=== PATIENT | female | born 1945 | race Caucasian/White ===

== ENCOUNTER 2018-06-14 11:07 | Day surgery (SDC) | payer MEDICARE, OTHER ==
[~2018-06-14] VITALS: Ht 170.2 cm; Wt 70.1 kg
[~2018-06-14 11:07] MED LIST: Aspirin EC81 MG; BISO5 PO; Stool Softener100 MG PO
--- NOTE | 2018-06-14 15:36 | NUR ---
06/14/18 1536 Alannah Hill LATE ENTRY FOR TODAY AT 1500 PATIENT UPDATED REGARDING DELAY. NO COMPLAINTS AT THIS TIME, CALL LIGHT WITHIN REACH. WILL CONTINUE TO UPDATE NEEDED.
== END 2018-06-14 16:55 | disposition home or self-care (01) ==
LOC: ORSCSDS 11:07
PROVIDERS: Internal Medicine Gastroenterology
PROC: 0DBL8ZX Excision of Transverse Colon, Via Natural or Artificial Opening Endoscopic, Diagnostic (ICD-10-PCS; principal; 2018-06-14 13:30)
PROC: 0DBK8ZX Excision of Ascending Colon, Via Natural or Artificial Opening Endoscopic, Diagnostic (ICD-10-PCS; principal; 2018-06-14 13:30)
DX: Z12.11 Encounter for screening for malignant neoplasm of colon (principal); Z86.010 Personal history of colon polyps; Z80.0 Family history of malignant neoplasm of digestive organs; D12.2 Benign neoplasm of ascending colon; D12.3 Benign neoplasm of transverse colon; K64.8 Other hemorrhoids; I10 Essential (primary) hypertension; Z79.899 Other long term (current) drug therapy
CPT/HCPCS: 88305; J7120

== ENCOUNTER 2019-02-02 09:56 | Day surgery (SDC) | payer MEDICARE, OTHER ==
[~2019-02-02] VITALS: Ht 167.6 cm; Wt 158.0 kg
--- NOTE | 2019-02-02 12:52 | NUR ---
02/02/19 9344 Jasmin Wallace 1242- DR FENTON PRESENTED TO THE YUSRA-OP AREA TO INJECT R WRIST WITH MARCAINE 0.5% WITH EPI 1:200,000 5CC AND LIDOCAINE 2% WITH EPI 1:100,000 5CC. PULSE OXIMETRY WAS MONITORED AND PT REMAINED STABLE. PT TOLERATED WELL. NO COMPLICATIONS.
--- NOTE | 2019-02-02 14:15 | NUR ---
02/02/19 1414 Dulce Peoples WHILE IN STEP DOWN PT COMPLAINED OF NAUSEA. RN TREATED WITH ZOFRAN PER ORDERS. VSS. PT ACCOMPANIED BY HER .RN WENT OVER DISCHARGE INSTRUCTIONS WITH PT AND PT'S FAMILY UNTIL ALL QUESTIONS WERE ANSWERED. PT SENT HOME WITH WRITTEN INSTRUCTIONS, SLING, PERSONAL BELONGINGS, AND RX. PT WALKED OUT VIA STAND BY ASSIST FROM RN TO 'S CAR.
== END 2019-02-02 14:12 | disposition home or self-care (01) ==
LOC: ORSCSDS 09:56
PROVIDERS: Orthopaedic Surgery
PROC: 01N54ZZ Release Median Nerve, Percutaneous Endoscopic Approach (ICD-10-PCS; principal; 2019-02-02 12:55)
DX: G56.01 Carpal tunnel syndrome, right upper limb (principal); I10 Essential (primary) hypertension; Z79.899 Other long term (current) drug therapy
CPT/HCPCS: J0171; J0690; J2250; J2405; J3010; J7120

== ENCOUNTER → 2019-09-22 | Outpatient (CLI) | payer MEDICARE, OTHER ==
[2019-09-22 13:14] LABS: Source, Urine Clean Catch
[2019-09-22 14:33] LABS: Bilirubin, Urine Neg (Neg); Blood, Urine 2+ (Neg); Glucose Qualitative, Urine Neg (Neg); Ketones, Urine 1+ (Neg); Leukocyte Esterase, Urine Neg (Neg); Nitrite, Urine Neg (Neg); Protein, Urine Neg (Neg); Urobilinogen, Urine NORM (Normal)
[2019-09-22 14:44] LABS: Appearance, Urine Clear (Clear); Color, Urine Pale Yellow (P-Yellow)
[2019-09-22 14:45] LABS: Bacteria Rare /hpf; Squamous Epithelial Cells Not Seen /hpf (Few); White Blood Cells, Urine Not Seen /hpf (0-5)
== END | disposition home or self-care (01) ==
LOC: LAB SHORT 12:35 → LAB 12:35
PROVIDERS: Internal Medicine
DX: R30.0 Dysuria (principal)
CPT/HCPCS: 81001

== ENCOUNTER → 2020-07-10 | Outpatient (CLI) | payer MEDICARE, OTHER | END | disposition home or self-care (01) | LOC: LAB SHORT 06:00 → PLD 06:00 | DX: R10.13 Epigastric pain (principal) | CPT/HCPCS: 87338 ==

== ENCOUNTER 2021-07-03 13:35 | Day surgery (SDC) | payer MEDICARE, OTHER ==
--- NOTE | 2021-07-03 15:33 | NUR ---
07/03/21 1533 ZOILA WILSON History, Chart, Medications and Allergies reviewed before start of procedure. Patient confirms NPO status and agrees with scheduled surgery. 3-LEAD EKG REVIEWED WITH PHYSICIAN PRIOR TO START OF PROCEDURE. MONITOR INTACT WITH CONTINUOUS PULSE OXIMETRY AND INTERMITTENT BP. PATIENT DETERMINED TO BE ASA APPROPRIATE FOR PROPOFOL SEDATION PRIOR TO START OF PROCEDURE BY DR. CRUZ. O2 VIA CANNULA.
--- NOTE | 2021-07-03 17:04 | NUR ---
PT AOX4. DENIES PAIN,N/V. PT TOLERATING PO FLUIDS. RIDE INFORMED OF STATUS.
--- NOTE | 2021-07-03 17:36 | NUR ---
Discharge instructions reviewed with patient. Patient verbalizes understanding. Copy given to patient to take home. Patient States Post-Procedure ride home has been arranged. Discharged via wheelchair to private car for ride home.
== END 2021-07-03 17:38 | disposition home or self-care (01) ==
LOC: ORSCMMR 13:35 → ORD 14:45 → ORSCSDS 14:45 → ORSCMMR 17:38
PROVIDERS: Internal Medicine Gastroenterology
PROC: 0DBK8ZX Excision of Ascending Colon, Via Natural or Artificial Opening Endoscopic, Diagnostic (ICD-10-PCS; principal; 2021-07-03 14:45)
PROC: 0DBL8ZX Excision of Transverse Colon, Via Natural or Artificial Opening Endoscopic, Diagnostic (ICD-10-PCS; principal; 2021-07-03 14:45)
DX: Z12.11 Encounter for screening for malignant neoplasm of colon (principal); Z86.010 Personal history of colon polyps; D12.2 Benign neoplasm of ascending colon; D12.3 Benign neoplasm of transverse colon; K64.8 Other hemorrhoids; Z80.0 Family history of malignant neoplasm of digestive organs; Z79.899 Other long term (current) drug therapy
CPT/HCPCS: J2704; J7120

== ENCOUNTER 2022-04-16 07:47 | Day surgery (SDC) | payer MEDICARE, OTHER ==
[~2022-04-16] VITALS: Ht 167.6 cm; Wt 71.6 kg
[2022-04-16] MEDS ORDERED: Ativan1 MG PO (08:15)
[2022-04-16] MEDS ORDERED: DOCU100 PO (08:15)
--- NOTE | 2022-04-16 08:22 | NUR ---
04/16/22 0822 Brenda Abreu AT 0814 PLEDGET AT 0820
== END 2022-04-16 09:30 | disposition home or self-care (01) ==
LOC: ORSCSDS 07:47
PROVIDERS: Ophthalmology
PROC: 08DK3ZZ Extraction of Left Lens, Percutaneous Approach (ICD-10-PCS; principal; 2022-04-16 09:00)
DX: H25.12 Age-related nuclear cataract, left eye (principal); I10 Essential (primary) hypertension; Z79.899 Other long term (current) drug therapy
CPT/HCPCS: J2001; J2250; J3010; J3301; J7040; V2632

== ENCOUNTER 2022-04-30 07:49 | Day surgery (SDC) | payer MEDICARE, OTHER ==
[~2022-04-30] VITALS: Ht 170.2 cm; Wt 70.9 kg
[~2022-04-30 07:49] MED LIST changes: +Ativan1 MG PO; +DOCU100 PO
[2022-04-30] MEDS ORDERED: ZINC220 PO (08:12)
[2022-04-30] MEDS ORDERED: THERA-D2000 UNIT PO (08:12)
--- NOTE | 2022-04-30 08:24 | NUR ---
04/30/22 0824 Brenda Abreu IN AT 0810 HA IN AT 0812
== END 2022-04-30 09:39 | disposition home or self-care (01) ==
LOC: ORSCSDS 07:49
PROVIDERS: Ophthalmology
PROC: 08DJ3ZZ Extraction of Right Lens, Percutaneous Approach (ICD-10-PCS; principal; 2022-04-30 09:00)
DX: H25.11 Age-related nuclear cataract, right eye (principal); Z96.1 Presence of intraocular lens; I10 Essential (primary) hypertension; Z79.899 Other long term (current) drug therapy
CPT/HCPCS: J2001; J2250; J3010; J3300; J3301; J7040; V2632

== ENCOUNTER 2024-07-11 08:13 | Day surgery (SDC) | payer MEDICARE, OTHER ==
[~2024-07-11] VITALS: Ht 167.6 cm; Wt 68.6 kg
[~2024-07-11 08:13] MED LIST changes: +Lactated Ringer's 1,000 ML IV ONE; +THERA-D2000 UNIT PO; +ZINC220 PO; +propofoL 40 ML IV ONE
[2024-07-11] MEDS ORDERED: Lactated Ringer's 1,000 ML IV ONE ×2 (08:46)
[2024-07-11] MEDS ORDERED: propofoL 20 ML IV ONE (09:59)
[2024-07-11 10:56] VITALS: BP 120/58
== END 2024-07-11 10:50 | disposition home or self-care (01) ==
LOC: ORSCSDS 08:13
PROVIDERS: Internal Medicine Gastroenterology
PROC: 0DJD8ZZ Inspection of Lower Intestinal Tract, Via Natural or Artificial Opening Endoscopic (ICD-10-PCS; principal; 2024-07-11 09:30)
DX: Z12.11 Encounter for screening for malignant neoplasm of colon (principal); Z86.0101 Personal history of adenomatous and serrated colon polyps; Z80.0 Family history of malignant neoplasm of digestive organs; K64.8 Other hemorrhoids; E78.5 Hyperlipidemia, unspecified; Z79.899 Other long term (current) drug therapy
CPT/HCPCS: J2704; J7120